=== PATIENT | male | born 1980 | race Caucasian/White ===

== ENCOUNTER 2025-04-13 10:48 | Emergency (ER) | payer MEDICAID ==
[~2025-04-13] VITALS: Ht 172.7 cm; Wt 61.6 kg
[2025-04-13 11:17] LABS: LEUKOCYTE ESTERASE ,URINE NEGATIVE (Neg); NITRITES, URINE NEGATIVE (Neg); OCCULT BLOOD,URINE NEGATIVE (Neg)
[2025-04-13 11:22] LABS: UA COLLECTION TYPE CLN CATCH MIDSTREAM
--- NOTE | 2025-04-13 11:25 | Physician Documentation ---
History of Present Illness General Chief Complaint: Diarrhea Stated Complaint: NAUSEA DIARRHEA Time Seen by MD: 11:23 History of Present Illness Initial Comments 44-year-old male complains of loose stools for the last two weeks and 20 lb weight loss, patient states he has nausea and he has been using Imodium for his diarrhea. He denies any fevers or chills he denies any recent travel. The patient states he has PTSD and history of migraines and he was on valproic acid in the past and he states his PTSD is now getting worse. Patient only complains of slight pain when he has his loose stools. Medication Reconciliation Allergies: Coded Allergies: No Known Allergies (Unverified , 04/13/25) Scheduled Escitalopram Oxalate (Lexapro), 1 TAB PO DAILY Potassium Chloride* (K-Dur*), 1 TAB PO DAILY Scheduled PRN Dicyclomine Hcl* (Bentyl*), 1 CAP PO Q6H PRN for diarrhea ONDANSETRON ODT 4mg tablet (Ondansetron Odt), 1 TABLET PO Q6H PRN for nausea/vomiting Past Medical History Past Medical History: No Pertinent History Review of Systems All Other Systems at this time: Reviewed and Negative Physical Exam Physical Exam Vital Signs: Temperature: 97.4, Source: Temporal, Heart Rate: 60, Respiratory Rate: 18, BP: 131/80, Pulse Oximetry: 98, Weight: 61.600 Oxygen Flow Rate: 0 Physical Exam VITALS: Reviewed and as above. GENERAL: Alert, no apparent distress. HEENT: Normocephalic, atraumatic, PERRL, EOMI, dry mucosa, no erythema RESPIRATORY: Lungs clear, normal breath sounds, no respiratory distress. CHEST: No accessory muscle use, no retractions CV: Regular rate, rhythm, no edema, no murmur, No: JVD GI: Soft, non-tender, bowels sounds present, no rebound, guarding, or rigidity BACK: No CVA tenderness, or swelling MUSCULOSKELETAL: No deformities, no edema SKIN: Warm and dry, no rash NEURO: Oriented x4, No motor or sensory deficit PSYCH: Normal mood and affect, no agitation Progress Results/Orders Results/Orders Completed Orders - OHLTORY,DIETER Rodrigez MD Urinalysis, Cult If Indicated (04/13/25 11:09) Cbc/Diff (04/13/25 11:09) BMP (04/13/25 11:09) Lipase (04/13/25 11:09) CMP (04/13/25 11:09) TSH (04/13/25 11:21) Vital Signs 04/13/25 04/13/25 04/13/25 11:05 11:28 13:42 Temp 97.4 97.4 Pulse 60 67 Resp 18 18 18 B/P (MAP) 131/80 135/98 Pulse Ox 98 99 O2 Flow Rate 0 Laboratory Tests Test 04/13/25 11:08 04/13/25 11:21 Urine Specimen Description Cln catch midstream Urine Color Yellow Urine Clarity Clear Urine pH 7.5 Urine Specific [place] 1.020 Urine Protein Negative Urine Glucose (UA) Negative Urine Ketones Negative Urine Occult Blood Negative Urine Nitrite Negative Urine Bilirubin Negative Urine Urobilinogen 1.0 Urine Leukocyte Esterase Negative Urine Culture Indicated Not ind Volume Urine Centrifuged 10 ml Urine Comment White Blood Count 8.3 Red Blood Count 4.62 L Hemoglobin 13.7 L Hematocrit 40.9 L Mean Corpuscular Volume 88.7 Mean Corpuscular Hemoglobin 29.7 Mean Corpuscular Hemoglobin Concent 33.5 Red Cell Distribution Width 14.4 Platelet Count 342 Mean Platelet Volume 6.5 L Neutrophils (%) (Auto) 63.5 Lymphocytes (%) (Auto) 28.3 Monocytes (%) (Auto) 7.1 Eosinophils (%) (Auto) 0.4 Basophils (%) (Auto) 0.7 Neutrophils # (Auto) 5.3 Lymphocytes # (Auto) 2.3 Monocytes # (Auto) 0.6 Eosinophils # (Auto) 0.0 Basophils # (Auto) 0.1 CBC Comment Sodium Level 139 Potassium Level 3.4 L Chloride Level 104 Carbon Dioxide Level 30.9 Anion Gap 4 L Blood Urea Nitrogen 12 Creatinine 0.80 Estimated GFR/1.73 m2 > 90 BUN/Creatinine Ratio 15.0 Glucose Level 76 Calcium Level 9.0 Total Bilirubin 0.3 Aspartate Amino Transf (AST/SGOT) 14 Alanine Aminotransferase (ALT/SGPT) 33 Alkaline Phosphatase 71 Total Protein 7.4 Albumin 4.2 Globulin 3.2 Albumin/Globulin Ratio 1.3 Lipase 102 H Thyroid Stimulating Hormone (TSH) 0.95 Chemistry Comments Medical Decision Making Additional information obtaine: old records Findings The patient presented with two weeks of diarrhea weight loss and nausea, the patient was given IV fluids the patient will be discharged with multiple medications to include Bentyl Zofran potassium, the patient was found to be hypokalemic, the patient does have a benign abdominal exam no acute pathology was identified on labs or physical exam patient's pulse oximetry was interpreted as normal and adequate in his cardiac rn was interpreted as a sinus rhythm the patient has been advised to follow up as an outpatient. Differential Diagnosis Colitis, diverticulitis, irritable bowel, infectious colitis, Departure Impression: Primary Impression: Hypokalemia Additional Impressions: Dehydration Diarrhea Qualified Codes: R19.7 - Diarrhea, unspecified Referrals: NO PRIMARY CARE PROVIDER (PCP) Prescriptions ONDANSETRON ODT 4mg tablet (ONDANSETRON ODT) 4 Mg Tab.rapdis 1 TABLET PO Q6H PRN for nausea/vomiting, #12 TABLET Prov: DIETER WOODARD MD 04/13/25 Escitalopram Oxalate (Lexapro) 20 Mg Tablet 1 TAB PO DAILY for 30 Days, #30 TAB 0 Refills Prov: DIETER WOODARD MD 04/13/25 Dicyclomine Hcl* (Bentyl*) 10 Mg Capsule 1 CAP PO Q6H PRN for diarrhea, #20 CAP Prov: DIETER WOODARD MD 04/13/25 Potassium Chloride* (K-Dur*) 20 Meq Tab.prt.sr 1 TAB PO DAILY, #7 TAB Prov: DIETER WOODARD MD 04/13/25 Signature Scribe Signature: No scribe Attestation: The note accurately reflects work and decisions made by me.Dieter Woodard MD 04/14/25 07:43 DIETER WOODARD MD Apr 13, 2025 11:25
[2025-04-13 11:31] LABS: MEAN PLATELET VOLUME 6.5 FL (7.4-10.4); RED CELL DISTRIBUTION WIDTH 14.4 % (11.5-14.5)
[2025-04-13 11:47] LABS: CREATININE 0.80 MG/DL (0.60-1.10); TOTAL CARBON DIOXIDE 30.9 MMOL/L (24-32); eCRCL 105 ML/MIN; eGFR > 90 ML/MIN
[2025-04-13] MEDS ORDERED: DICY10CA88 PO (12:47)
[2025-04-13] MEDS ORDERED: ONDA-243 PO (12:47)
[2025-04-13] MEDS ORDERED: ESCI20TA36 PO (12:47)
[2025-04-13] MEDS ORDERED: POTA-207 PO (12:47)
[2025-04-13 13:42] VITALS: BP 135/98; PULSE 67; RESP 18; TEMP 97.4; O2SAT 99
== END 2025-04-13 13:47 | disposition home or self-care (01) ==
LOC: ER 10:49
DX: E87.6 Hypokalemia (principal); E86.0 Dehydration; R19.7 Diarrhea, unspecified; Z79.899 Other long term (current) drug therapy
CPT/HCPCS: 36415; 80053; 81003; 83690; 84443; 85025; 99283

== ENCOUNTER 2025-04-18 03:55 | Emergency (ER) | payer MEDICAID ==
[~2025-04-18] VITALS: Ht 172.7 cm; Wt 61.3 kg
[~2025-04-18 03:55] MED LIST: DICY10CA88 PO; ESCI20TA36 PO; ONDA-243 PO; POTA-207 PO
--- NOTE | 2025-04-18 04:24 | Physician Documentation ---
History of Present Illness ~ Chief Complaint: Vomiting Stated Complaint: N/V Time Seen by MD: 04:23 Primary Medical Doctor: NONE HPI 44-year-old male presenting with nausea vomiting and diarrhea. Per chart review, the patient was seen here in the emergency department 5 days ago for similar symptoms. At that time he reported 2 weeks of diarrhea. He had laboratory testing that was overall unremarkable except for potassium at 3.4. He was discharged with Zofran, potassium and Imodium. He returns today with ongoing symptoms. He reports that his symptoms never really improved after being in the emergency department. He has been having regular episodes of vomiting and frequent watery diarrhea. No blood in the vomit or stool. He also reports pain in the epigastric region of his abdomen. He reports subjective fevers and chills. He feels intermittently short of breath. He did take Zofran in the other medications given without any relief. He does use marijuana regularly. No history of abdominal surgeries. No history of similar episodes in the past. Medication Reconciliation Allergies: Coded Allergies: No Known Allergies (Unverified , 04/13/25) Scheduled Escitalopram Oxalate (Lexapro), 1 TAB PO DAILY Potassium Chloride* (K-Dur*), 1 TAB PO DAILY Scheduled PRN Dicyclomine Hcl* (Bentyl*), 1 CAP PO Q6H PRN for diarrhea ONDANSETRON ODT 4mg tablet (Ondansetron Odt), 1 TABLET PO Q6H PRN for nausea/vomiting Past Medical History Past Medical History: No Pertinent History Review of Systems Constitutional: Denies: fever Gastrointestinal: Reports: abdominal pain, nausea, vomiting, diarrhea Physical Exam Vital Signs: Temperature: 97.7, Source: Oral, Heart Rate: 59, Respiratory Rate: 16, BP: 138/88, Pulse Oximetry: 100, Weight: 61.300 Oxygen Flow Rate: 0 Physical Exam General: This is a uncomfortable appearing young man, partner at bedside HEENT: Atraumatic, oropharynx dry with cracked lips Heart: Regular rate and rhythm, normal-appearing peripheral perfusion Lungs: normal work of breathing, normal oxygen saturation on room air Abdomen: Soft, nondistended, tender to palpation in the epigastric region, without rebound or guarding Skin: Diaphoretic, dripping sweat Neuro: Alert and oriented Psychiatric: Appears uncomfortable but is cooperative with exam Progress Results/Orders Results/Orders Completed Orders - OHLFSDIETER MD Normal Saline 1000ml (0.9% Sodium Chlori (04/18/25 06:40) Iohexol 300mg/Ml 100ml Inj. (Omnipaque-3 (04/18/25 06:44) Acetaminophen 1,000mg/100ml Iv (Ofirmev (04/18/25 07:55) Vital Signs 04/18/25 04/18/25 04/18/25 04/18/25 04:07 05:09 06:22 06:33 Temp 97.7 97.7 Pulse 59 50 Resp 16 18 18 B/P (MAP) 138/88 126/106 (113) Pulse Ox 100 100 O2 Flow Rate 0 0 04/18/25 08:12 Pulse 60 Resp 14 B/P (MAP) 141/83 (102) Pulse Ox 100 Laboratory Tests Test 04/18/25 04:56 White Blood Count 10.7 Red Blood Count 4.76 Hemoglobin 14.3 Hematocrit 41.7 L Mean Corpuscular Volume 87.7 Mean Corpuscular Hemoglobin 30.0 Mean Corpuscular Hemoglobin Concent 34.2 Red Cell Distribution Width 14.5 Platelet Count 362 Mean Platelet Volume 6.8 L Neutrophils (%) (Auto) 76.1 H Lymphocytes (%) (Auto) 17.6 L Monocytes (%) (Auto) 5.2 Eosinophils (%) (Auto) 0.2 Basophils (%) (Auto) 0.9 Neutrophils # (Auto) 8.1 H Lymphocytes # (Auto) 1.9 Monocytes # (Auto) 0.6 Eosinophils # (Auto) 0.0 Basophils # (Auto) 0.1 CBC Comment Sodium Level 137 Potassium Level 3.7 Chloride Level 104 Carbon Dioxide Level 17.8 L Anion Gap 15 Blood Urea Nitrogen 10 Creatinine 1.14 H Estimated GFR/1.73 m2 70 BUN/Creatinine Ratio 8.8 L Glucose Level 175 H Calcium Level 9.3 Total Bilirubin 0.3 Aspartate Amino Transf (AST/SGOT) 20 Alanine Aminotransferase (ALT/SGPT) 29 Alkaline Phosphatase 76 Total Protein 7.2 Albumin 4.2 Globulin 3.0 Albumin/Globulin Ratio 1.4 Lipase 21 Chemistry Comments EKG/XRAY/CT/US/VASC/MRI CT : Impression Patient: THANG ABERNATHY Medical Record: [id number] [facility] : 1980, Age: 44 Sex: Male Location: ER Patient Status: [facility] ER Service Date/Time: 04/18/25699 Ordering Physician: LUIS TOURE MD Exam: CT CHEST ABDOMEN PELVIS IV CON CLINICAL INFORMATION: Epigastric pain, pleuritic chest pain, 2-3 weeks of vomiting and diarrhea. TECHNIQUE: Axial CT images of the chest, abdomen, and pelvis were obtained after the uneventful administration of 100 mL of Omnipaque 350 IV contrast. Coronal and sagittal reformatted images were obtained, reviewed, and stored. All CT scans at this medical facility are performed using dose modulation techniques as appropriate to a performed exam including the following: Automated exposure control was utilized; adjustment of the MA and/or KV according to patient size; and use of iterative reconstruction technique. CTDIvol = 20.18 mGy DLP = 987.33 mGy-cm COMPARISON: None FINDINGS: CT CHEST: Aorta: No aneurysm or dissection. Cardiac: Heart size is within normal limits. No significant calcification. Mediastinum/guero: No mass or adenopathy. Lungs: Lungs are clear. Pulmonary arteries: No gross abnormality. No central or lobar pulmonary embolism. Limited evaluation for segmental or subsegmental pulmonary emboli due to the timing of contrast. Chest wall: No mass or other abnormality. Bones: No acute fracture or suspicious intraosseous lesions. CT ABDOMEN/PELVIS: Liver: Small cyst in the right hepatic lobe near the dome. Biliary: No calcified gallstones or biliary ductal dilatation. Spleen: Unremarkable. Pancreas: Unremarkable. No inflammatory changes, ductal dilatation, or mass identified. Adrenal glands: Unremarkable. No mass. Kidneys: No hydronephrosis or mass. Aorta: No aneurysm or significant calcification. Retroperitoneum: No mass or lymphadenopathy. Bowel/mesentery: Nonspecific nondilated fluid-filled small bowel loops. No small bowel obstruction. Appendix is visualized and appears unremarkable. No free air or free fluid in the abdomen or pelvis. Nonspecific areas of mild wall thickening of the colon. Pelvic organs: Grossly unremarkable. Bladder: Unremarkable. No mass. Abdominal wall: No mass or hernia. Bones: No acute fracture or focal intraosseous lesion. IMPRESSION: 1. No evidence of acute disease in the chest. 2. Nonspecific nondilated fluid-filled small bowel loops. Findings may be seen with ileus or enteritis in the appropriate clinical setting. No small bowel obstruction. 3. Nonspecific areas of mild wall thickening of the colon, may be partly due to underdistention. Can not exclude areas of mild colitis in the appropriate clinical setting. 4. Additional nonacute findings as described above. Electronically Signed by:ELEAZAR LABOY DO Date & Time: 04/18/25746 Dictated by: ELEAZAR LABOY DO Dictation date and time: 04/18/25746 Primary Care Provider: NO PRIMARY CARE PROVIDER cc: LUIS TOURE MD ~ Medical Decision Making Additional information obtaine: old records Findings Reviewed previous ER visit for vomiting. The patient complains of nausea and vomiting and continued diarrhea CT imaging was unremarkable the patient was desiring discharge. The patient will be discharged. Diff Dx GI Bleed:Consideration: Include: Gastritis, Gastroenteritis Diff Dx Pain:Considerations: Include: Esophagitis Diff Dx N/V/D:Considerations: Include: Dehydration, Diarrhea - bacterial, Diarrhea - viral, GI bleed, Hypovolemia Diff Dx Rectal:Considerations: Unlikely: Perirectal abscess Additional Comments The patient presents with ongoing nausea vomiting and diarrhea with some epigastric abdominal pain. I reviewed his previous ER visit and laboratory testing which was overall unremarkable. Here in the ED he does appear very uncomfortable and diaphoretic. An IV was established and he was given symptomatic treatment and IV fluids. Labs are overall unremarkable, no JOSE or electrolyte derangement. On re-evaluation he continued to have nausea and vomiting. Plan will be for CT scan to further evaluate for dangerous cause for his symptoms. The patient was signed out at shift change, pending CT scan and re-evaluation Departure Time of Disposition: 08:39 Disposition: 01 HOME / SELF CARE / HOMELESS Impression: Primary Impression: Nausea vomiting and diarrhea Discharge Instructions: Nausea and Vomiting, Adult Referrals: NO PRIMARY CARE PROVIDER (PCP) Signature Scribe Signature: [email or web address] Attestation: LUIS Perdomo MD Apr 18, 2025 04:24 OHLDIETER MD Apr 18, 2025 08:19
[2025-04-18] MEDS: normal saline 1000ml 1,000 ML IV ONE ×2 (05:01→06:21)
[2025-04-18 05:04] LABS: MEAN PLATELET VOLUME 6.8 FL (7.4-10.4); RED CELL DISTRIBUTION WIDTH 14.5 % (11.5-14.5)
[2025-04-18 05:09] VITALS: TEMP 97.7
[2025-04-18 05:22] LABS: CREATININE 1.14 MG/DL (0.60-1.10); TOTAL CARBON DIOXIDE 17.8 MMOL/L (24-32); eCRCL 73 ML/MIN; eGFR 70 ML/MIN
[2025-04-18] MEDS: diazepam inj 5 MG/ML inj. IV ONE (06:22)
[2025-04-18] MEDS ORDERED: iohexol 300mg/ml 100ml inj. ONE (06:44)
--- NOTE | 2025-04-18 07:50 | RADIOLOGY REPORT ---
CLINICAL INFORMATION: Epigastric pain, pleuritic chest pain, 2-3 weeks of vomiting and diarrhea. TECHNIQUE: Axial CT images of the chest, abdomen, and pelvis were obtained after the uneventful administration of 100 mL of Omnipaque 350 IV contrast. Coronal and sagittal reformatted images were obtained, reviewed, and stored. All CT scans at this medical facility are performed using dose modulation techniques as appropriate to a performed exam including the following: Automated exposure control was utilized; adjustment of the MA and/or KV according to patient size; and use of iterative reconstruction technique. CTDIvol = 20.18 mGy DLP = 987.33 mGy-cm COMPARISON: None FINDINGS: CT CHEST: Aorta: No aneurysm or dissection. Cardiac: Heart size is within normal limits. No significant calcification. Mediastinum/guero: No mass or adenopathy. Lungs: Lungs are clear. Pulmonary arteries: No gross abnormality. No central or lobar pulmonary embolism. Limited evaluation for segmental or subsegmental pulmonary emboli due to the timing of contrast. Chest wall: No mass or other abnormality. Bones: No acute fracture or suspicious intraosseous lesions. CT ABDOMEN/PELVIS: Liver: Small cyst in the right hepatic lobe near the dome. Biliary: No calcified gallstones or biliary ductal dilatation. Spleen: Unremarkable. Pancreas: Unremarkable. No inflammatory changes, ductal dilatation, or mass identified. Adrenal glands: Unremarkable. No mass. Kidneys: No hydronephrosis or mass. Aorta: No aneurysm or significant calcification. Retroperitoneum: No mass or lymphadenopathy. Bowel/mesentery: Nonspecific nondilated fluid-filled small bowel loops. No small bowel obstruction. Appendix is visualized and appears unremarkable. No free air or free fluid in the abdomen or pelvis. Nonspecific areas of mild wall thickening of the colon. Pelvic organs: Grossly unremarkable. Bladder: Unremarkable. No mass. Abdominal wall: No mass or hernia. Bones: No acute fracture or focal intraosseous lesion. IMPRESSION: 1. No evidence of acute disease in the chest. 2. Nonspecific nondilated fluid-filled small bowel loops. Findings may be seen with ileus or enteritis in the appropriate clinical setting. No small bowel obstruction. 3. Nonspecific areas of mild wall thickening of the colon, may be partly due to underdistention. Can not exclude areas of mild colitis in the appropriate clinical setting. 4. Additional nonacute findings as described above.
[2025-04-18] MEDS: normal saline 1000ML IV soln IVB ONE (07:56)
[2025-04-18] MEDS: acetaminophen 1,000mg/100ml IV 100 ML IV ONE (08:11)
[2025-04-18 08:12] VITALS: BP 141/83; PULSE 60; RESP 14; O2SAT 100
== END 2025-04-18 09:02 | disposition home or self-care (01) ==
LOC: ER 03:56
DX: R11.2 Nausea with vomiting, unspecified (principal); R06.02 Shortness of breath; F12.90 Cannabis use, unspecified, uncomplicated
CPT/HCPCS: 36415; 71260; 74177; 80053; 83690; 85025; 96361; 96374; 96375; 99285; J0131; J0780; J1200; J2470; J3360; J7030; Q9967